=== PATIENT | female | born 1960 | race African-American/Black ===

== ENCOUNTER 2016-04-16 09:27 | Emergency (ER) | payer OTHER ==
[~2016-04-16] VITALS: Ht 157.5 cm; Wt 73.9 kg
[~2016-04-16 09:27] MED LIST: AFRIN NASAL SPR15 ML NAS; AUGMENTIN 875 M1 TAB PO; BLM PO; FLEXERIL 5MG TAB5 MG PO; FLONASE ALLERG9.9 ML INH; IBUPROFEN800 MG PO; MEDROL DOSEPAK1 PAC PO; MOBIC15 MG PO; NASONEX0.05 MG/Ac NAS; OXYCODONE5 M1 PO; PREDNISONE50 MG PO; PROPRANOLOL HCL60 MG; TRAMADOL50 MG PO; VICODIN5-300 PO; XANAX0.5 MG PO; ZITHROMAX Z-PA250 M1 PO; ZOMIG5 M1 NAS
[2016-04-16 09:30] VITALS: BP 120/89
--- NOTE | 2016-04-16 09:38 | ED EYE COMPLAINT ---
History of Present Illness General Chief Complaint: General Adult Stated Complaint: PT STATES"IM GETTING FLOATERS" Source: patient, old records Exam Limitations: no limitations Vital Signs & Intake/Output Vital Signs & Intake/Output Vital Signs Date Time Temp Pulse Resp B/P Pulse O2 O2 Flow FiO2 Ox Delivery Rate 04/16 0930 96.1 78 16 120/89 100 Room Air Allergies Coded Allergies: oxycodone (ITCHING 11/28/15) Uncoded Allergies: NARCOTICS (Intermediate, ITCHING 01/11/15) Reconcile Medications Fluticasone Propionate (Flonase Allergy Relief) 50 MCG/ACTUATION SPRAY.SUSP 2 PUFF INH D ALLERGIES Ibuprofen 800 MG TAB 1 TAB PO TID PRN PAIN Triage Note: 55 Y/O FEMALE STATES "I AM DEHYDRATED". STATES SHE GETS "FLOATERS" IN HER EYES WHEN THIS HAPPENS AND CURRENTLY FEELS "DRY ALL OVER". STATES SHE IS NOT GOOD ABOUT DRINKING WATER. DENIES N/V/D. Triage Nurses Notes Reviewed? yes Onset: Gradual Duration: week(s):, gone now, intermittent Timing: recent history Injury Environment: home Severity: mild Severity Numbers: 3 No Modifying Factors: none Left Eye Associated Symptoms: "dry" Right Eye Associated Symptoms: "dry" HPI: 55-year-old female presents to the emergency room complaining of intermittent bilateral visual "floaters" that she has had for the past several weeks and has had chronically in the past. She states that she's been seen by an eye doctor and was told that her symptoms were because she was "dehydrated" she denies any floaters at this time there is no visual loss she denies any other vision symptoms or eye pain however she states her eyes feel "dry" she denies recent fever chills no recent trauma no swelling or rashes to her face no chest pain no shortness of breath nausea vomiting or diarrhea (KIMMY RING,IKER) Past History Travel History Traveled to [place] past 21 day No Medical History Any Pertinent Medical History? 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 No (IKER SAXENA) Review of Systems Review of Systems Constitutional: Reports: see HPI. All Other Systems: Reviewed and Negative Comments Review of systems: See HPI, All other systems negative. Constitutional, no chills no fever, no malaise HEENT: no sore throat no congestion Cardiovascular: No chest pain , no palpitation Skin, no rashes, no change in skin Respiratory: No dyspnea no cough no sputum GI: No nausea no vomiting, no diarrhea, no bloating/constipation : No dysuria No hematuria, Muscle skeletal: No joint pain, no back pain, no neck pain, Neurologic: No numbness no headache Psych: No stress Heme/endocrine: No bruising no bleeding Immunology: No lymphadenopathy (IKER SAXENA) Physical Exam General Appearance: well developed/nourished, alert, awake, comfortable General Inspection: normal inspection Eyelid: normal inspection Conjunctiva/Sclera: normal inspection Cornea: normal inspection EOM: intact Pupil: normal accommodation, normal pupil, PERRL General Inspection: normal inspection Eyelid: normal inspection Conjunctiva/Sclera: normal inspection Cornea: normal inspection EOM: intact Pupil: normal accommodation, normal pupil, PERRL Physical Exam Comments: Well-developed well-nourished patient in no apparent distress. Head/Face: Atraumatic, no maxillary/frontal sinus tenderness, no facial swelling Eyes: PERRL, EOMI, no conjunctival injection. No nystagmus Ear:External auditory canal and Tympanic membranes clear, no erythema, no FB. Nose: atraumatic.Normal inspection: No bleeding, no septal hematoma Throat: Moist mucous membranes.Pharynx normal. No pharyngeal erythema/exudate seen. No stridor/drooling or assymetry. No swelling or edema. Neck: Supple, no lymphadenopathy, FROM Back: FROM, Nontender Cardiovascular: Regular rate and rhythms no murmurs rubs or gallops, Respiratory: Chest nontender.There were no bony deformities, no asymmetry. No respiratory distress. Patient speaking in full complete sentences. Breath sounds clear to auscultation bilaterally: NO W/R/R Extremities: full range of motion Neuro: Alert and oriented x3 Skin: Warm & dry;No appreciable rash on exposed skin Psych: Mood affect normal, normal memory normal judgment. (IKER SAXENA) Progress Differential Diagnosis: corneal abrasion, conjunctivitis, detached retina, glaucoma, retinal art./v. occlusion, electrolyte abnormality, sjogrens syndrome Plan of Care: Orders Procedure Date/time Status CBC WITHOUT DIFFERENTIAL 04/16 942 Complete BASIC METABOLIC PANEL 04/16 942 Complete Laboratory Tests 04/16/16 0948: Anion Gap 14, Estimated GFR > 60, BUN/Creatinine Ratio 30.0 H, Glucose 104 H, Calcium 9.1, CBC w Diff NO MAN DIFF REQ, RBC 4.16 L, MCV 82.3, MCH 27.7, RDW 12.7, MPV 8.4, Gran % 35.4 L, Lymphocytes % 52.5 H, Monocytes % 7.0, Eosinophils % 2.6, Basophils % 2.5 H, Absolute Granulocytes 0.7 L, Absolute Lymphocytes 1.0 L, Absolute Monocytes 0.1 L, Absolute Eosinophils 0, Absolute Basophils 0, PUBS MCHC 33.7 Labs ordered patient denies any symptoms including floaters at this time patient has been seen numerous times in the past stating that IV fluids resolve her episodes of these symptoms On repeat evaluation patient again denies any symptoms no visual symptoms. She feels well, discussed the need for close follow-up with ophthalmology information was provided advised return anytime sooner if any concerns she feels , plan cleared for discharge (IKER SAXENA) Departure Departure Time of Disposition: 1048 Disposition: HOME OR SELF CARE Condition: Stable Clinical Impression Primary Impression: Floaters in visual field Referrals: Martha WILD MD (PCP/Family) DIA PALACIOS MD Additional Instructions: Primary care physician as well as foundry tender Dr. PALACIOS. Return anytime sooner with any concerns Departure Forms: Customer Survey General Discharge Information (IKER SAXENA) PA/EMPLOYEE ADVISER Co-Sign Statement Statement: ED Attending supervision documentation- [] I saw and evaluated the patient. I have also reviewed all the pertinent lab results and diagnostic results. I agree with the findings and the plan of care as documented in the PA's/EMPLOYEE ADVISER's documentation. [X] I have reviewed the ED Record and agree with the PA's/EMPLOYEE ADVISER's documentation. [] Additions or exceptions (if any) to the PAs/EMPLOYEE ADVISER's note and plan are summarized below: [] (COREY HEATON DO)
[2016-04-16 09:55] LABS: ABSOLUTE BASOPHIL COUNT 0 /CUMM (0.0-0.2); ABSOLUTE EOSINOPHIL COUNT 0 /CUMM (0.0-0.7); ABSOLUTE GRANULOCYTE CT 0.7 /CUMM (1.4-6.5); ABSOLUTE MONOCYTE COUNT 0.1 /CUMM (0.10-0.60); BASOPHIL % 2.5 % (0.0-2.0); EOSINOPHIL % 2.6 % (0-5); HEMATOCRIT 34.3 % (37-47); MEAN CORPUSCULAR HGB 27.7 PG (27.0-31.0); MEAN CORPUSCULAR HGB CONC 33.7 G/DL (33.0-37.0); MEAN CORPUSCULAR VOLUME 82.3 FL (81.0-99.0); MEAN PLATELET VOLUME 8.4 FL (7.4-10.4); PLATELET COUNT 212 /CUMM (130-400); RBC DISTRIBUTION WIDTH 12.7 % (11.5-14.5); RED BLOOD CELL CT 4.16 /CUMM (4.20-5.40); WHITE BLOOD CELL COUNT 1.9 /CUMM (4.8-10.8)
[2016-04-16 09:56] LABS: GRANULOCYTE % 35.4 % (42.2-75.2)
== END 2016-04-16 10:51 ==
LOC: ERH 09:27
PROVIDERS: Physician Assistant Medical
DX: H43.393 Other vitreous opacities, bilateral (principal)
CPT/HCPCS: 96360

== ENCOUNTER 2016-07-25 22:37 | Emergency (ER) | payer OTHER ==
[~2016-07-25] VITALS: Ht 157.5 cm; Wt 73.9 kg
[2016-07-25 22:39] VITALS: BP 111/77
--- NOTE | 2016-07-26 00:07 | ED INFLUENZA/URI COMPLAINT ---
History of Present Illness General Chief Complaint: Upper Respiratory Sx/Fever Stated Complaint: SINUS CONGESTION, EARS BLOCKED Source: patient Exam Limitations: no limitations Vital Signs & Intake/Output Vital Signs & Intake/Output Vital Signs Date Time Temp Pulse Resp B/P Pulse O2 O2 Flow FiO2 Ox Delivery Rate 07/259 97.8 74 18 111/77 98 Room Air ED Intake and Output 07/26 0000 07/25 1200 Intake Total Output Total Balance Patient 163 lb Weight Allergies Coded Allergies: oxycodone (ITCHING 11/28/15) Uncoded Allergies: NARCOTICS (Intermediate, ITCHING 01/11/15) Reconcile Medications Methylprednisolone. (Medrol) 4 MG TAB.DS.PK 1 DP PO AD uri 6 on day 1 then reduce by one tablet daily until gone Triage Note: PT TO TRIAGE WITH C/O ITCHY/DRY EYES, CONGESTION, EARS BLOCKED x5DAYS. HX OF SEASONAL ALLERGY. PT HAS BEEN TAKING BENADRYL AND CLARITIN WITH NO RELIEF. VSS, PT AFEBRILE. Triage Nurses Notes Reviewed? yes Onset: Abrupt Duration: day(s):, constant, changing over time Timing: recent history Severity: moderate, severe No Modifying Factors: none HPI: 55-year-old female comes into the emergency room for further evaluation of sinus congestion with her ears feeling like there is a lot of pressure in them bilaterally. Denies any fever. Denies any vomiting. Denies any sore throat. History of previous sinus issues. Nothing seems to make the symptoms better or worse. Denies any other associated symptoms. (SRUTHI GLOVER) Past History Travel History Traveled to [place] past 21 day No Medical History Any Pertinent Medical History? 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 No (SRUTHI GLOVER) Review of Systems Review of Systems Constitutional: Reports: see HPI. EENTM: Reports: see HPI. Respiratory: Reports: see HPI. Cardiovascular: Reports: no symptoms. GI: Reports: no symptoms. Genitourinary: Reports: no symptoms. Musculoskeletal: Reports: no symptoms. Skin: Reports: no symptoms. Neurological/Psychological: Reports: no symptoms. Hematologic/Endocrine: Reports: no symptoms. Immunologic/Allergic: Reports: no symptoms. All Other Systems: Reviewed and Negative (SRUTHI GLOVER) Physical Exam Physical Exam General Appearance: well developed/nourished, no apparent distress, alert Head: atraumatic, normal appearance Eyes: Bilateral: normal appearance. Ears, Nose, Throat: normal ENT inspection, moist mucous membrane, cerumen impaction Neck: normal inspection, full range of motion Respiratory: normal breath sounds, no respiratory distress Cardiovascular: regular rate/rhythm Gastrointestinal: soft Back: normal inspection Extremities: normal inspection, normal range of motion, no edema Neurologic/Psych: awake, alert, oriented x 3, normal gait, normal mood/affect Skin: intact, normal color Core Measures Severe Sepsis Present: No Septic Shock Present: No (SRUTHI GLOVER) Progress Differential Diagnosis: influenza, meningitis, neutropenia, otitis, pneumonia, pharyngitis, sinusitis Plan of Care: 07/26/2016 12:24:26 AM Patient clinically looks well. In no apparent distress. Nontoxic-appearing. Left ear was irrigated due to cerumen impaction. Small amount of wax removed but patient still has calcified wax. Patient was instructed to use dubrex drops [id number]. 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 Take Medrol Dosepak as prescribed. Follow-up with your primary care doctor. Return if any concerns worsening symptoms. Please go over all results of today's visit with your primary care doctor. Contact your primary care doctor to let them know you were here in the emergency room. There may be nonspecific findings which may not be related to your visit today here in the emergency room but may require further evaluation and chronic monitoring by your primary care doctor. If you had a laceration today the chance of foreign body always remains. You should follow-up with your primary care doctor for recheck in 3-5 days for a wound check. If you had an x-ray done there is a chance that a fracture could have been missed on initial read and you should follow-up with your primary care doctor for repeat x-rays if symptoms persist. If your blood pressure was elevated here in the emergency room please have rechecked by her primary care doctor within the next 48 hours by your primary care doctor. If you were prescribed a narcotic here in the emergency room or any type of controlled substances you're not allowed to drive while taking this medication or operate any type of heavy machinery. Narcotics can make you feel lightheaded dizziness nausea and can cause constipation. You may need to picker operator a stool softener. Thank you for choosing [facility] emergency room. Please return to the emergency room immediately if you have any other concerns worsening of symptoms. Departure Forms: Customer Survey General Discharge Information Prescriptions: Current Visit Scripts Methylprednisolone. (Medrol) 1 DP PO AD #1 DP 6 on day 1 then reduce by one tablet daily until gone (SRUTHI GLOVER) PA/LAUNDRY TECH Co-Sign Statement Statement: ED Attending supervision documentation- [] I saw and evaluated the patient. I have also reviewed all the pertinent lab results and diagnostic results. I agree with the findings and the plan of care as documented in the PA's/LAUNDRY TECH's documentation. [x] I have reviewed the ED Record and agree with the PA's/LAUNDRY TECH's documentation. [] Additions or exceptions (if any) to the PAs/LAUNDRY TECH's note and plan are summarized below: [] (ANA ROSA PATTERSON,KULWINDER Mcintyre)
[2016-07-26] MEDS ORDERED: MEDROL4 M2 PO (00:08)
[2016-07-26] MEDS ORDERED: MELOXICAM7.5 M1 PO (00:09)
== END 2016-07-26 00:15 ==
LOC: ERH 22:37
DX: J06.9 Acute upper respiratory infection, unspecified (principal)

== ENCOUNTER 2016-09-14 10:35 | Emergency (ER) | payer OTHER ==
[~2016-09-14] VITALS: Ht 157.5 cm; Wt 77.1 kg
[~2016-09-14 10:35] MED LIST changes: +MEDROL4 M2 PO; +MELOXICAM7.5 M1 PO
--- NOTE | 2016-09-14 11:19 | ED INFLUENZA/URI COMPLAINT ---
History of Present Illness General Chief Complaint: General Adult Stated Complaint: SEASONAL ALLERGIES,"EYE FLOATERS", "?DEHYDRATION" Source: patient Exam Limitations: no limitations Vital Signs & Intake/Output Vital Signs & Intake/Output Vital Signs Date Time Temp Pulse Resp B/P B/P Pulse O2 O2 Flow FiO2 Mean Ox Delivery Rate 09/14 1044 97.4 80 18 120/81 99 Room Air Allergies Coded Allergies: oxycodone (ITCHING 11/28/15) Uncoded Allergies: NARCOTICS (Intermediate, ITCHING 01/11/15) Reconcile Medications Methylprednisolone. (Medrol) 4 MG TAB.DS.PK 1 DP PO AD uri 6 on day 1 then reduce by one tablet daily until gone Methylprednisolone. (Medrol) 4 MG TAB.DS.PK 1 DP PO AD ALLERGIC SINUSITIS 6 on day 1 then reduce by one tablet daily until gone Mometasone Furoate (Nasonex) 50 MCG SPRAY.PUMP 2 SPRAY NASB DAILY ALLERGIC SINUSITIS Triage Note: C/O NASAL PAIN AND CONGESTION X 3 DAYS. PAIN RADIATES TO BOTH EARS AND JAW. TAKING ZYRTEC, BUT NOT HELPING. Triage Nurses Notes Reviewed? yes Onset: Abrupt Duration: day(s):, constant, continues in ED Timing: recent history Severity: moderate, severe No Modifying Factors: none HPI: 56-year-old female comes into emergency room with complaints of sinus congestion and pressure. Patient has had a history of this intermittently for many years. She reports pain underneath her eyes bilaterally that radiates into her ears. Runny nose. Patient reports that she gets steroid packs in the past when they get this bad which helped. [id number] allergy medication not helping. Patient has chronic intermittent floaters in her eyes which she has been evaluated for by her project management manager. She reports that sometimes this happens when she gets dehydrated. Denies any current floaters. Denies any eye pain. Denies any associated cough. No sore throat. Denies any ear pain. Patient reports that she used to see an ear nose and throat doctor but currently has not seem him in quite some time. Looking to find a new one. Past History Travel History Traveled to [place] past 21 day No Medical History Any Pertinent Medical History? 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 No Review of Systems Review of Systems Constitutional: Reports: see HPI. EENTM: Reports: see HPI. Respiratory: Reports: see HPI. Cardiovascular: Reports: no symptoms. GI: Reports: no symptoms. Genitourinary: Reports: no symptoms. Musculoskeletal: Reports: no symptoms. Skin: Reports: no symptoms. Neurological/Psychological: Reports: no symptoms. Hematologic/Endocrine: Reports: no symptoms. Immunologic/Allergic: Reports: no symptoms. All Other Systems: Reviewed and Negative Physical Exam Physical Exam General Appearance: well developed/nourished, no apparent distress, alert Head: atraumatic, normal appearance Eyes: Bilateral: normal appearance, EOMI. Ears, Nose, Throat: normal ENT inspection, moist mucous membrane Neck: normal inspection Respiratory: normal breath sounds, no respiratory distress Cardiovascular: regular rate/rhythm Back: normal inspection Extremities: normal inspection, normal range of motion, no edema Neurologic/Psych: awake, alert, oriented x 3 Skin: intact, normal color Core Measures Severe Sepsis Present: No Septic Shock Present: No Progress Differential Diagnosis: influenza, meningitis, neutropenia, otitis, pneumonia, pharyngitis, sinusitis, otitis media, Plan of Care: see above Initial ED EKG: none Comments: 09/14/2016 12:12:56 PM Patient clinically looks well. Patient is nontoxic-appearing. Patient is in no apparent distress. Her floaters are chronic and she currently is asymptomatic. Symptoms are very consistent with allergic sinusitis. Patient treated with Medrol Dosepak and told to follow-up with ear nose and throat doctor. Patient can follow-up with her primary care doctor in meantime while she is waiting on appointment. She is in no apparent distress upon discharge. Departure Departure Disposition: HOME OR SELF CARE Condition: Stable Clinical Impression Primary Impression: Allergic sinusitis Referrals: RANI PATTERSON,KELLI WLID MD,Martha LO (PCP/Family) Additional Instructions: Take medications as prescribed. Follow up with ENT DR PROVIDED. Return if any concerns/worsening of symptoms. Please follow up with your primary care dr as well for further evaluation and eye dr as needed. Departure Forms: Customer Survey General Discharge Information Prescriptions: Current Visit Scripts Methylprednisolone. (Medrol) 1 DP PO AD #1 DP 6 on day 1 then reduce by one tablet daily until gone Mometasone Furoate (Nasonex) 2 SPRAY NASB DAILY #1 INHAL
[2016-09-14] MEDS ORDERED: MEDROL4 M2 PO (11:20)
[2016-09-14] MEDS ORDERED: NASONEX17 GM NASB (11:20)
[2016-09-14 12:15] VITALS: BP 141/67
== END 2016-09-14 12:15 ==
LOC: ERH 10:35
DX: J30.9 Allergic rhinitis, unspecified (principal)

== ENCOUNTER 2017-04-17 15:06 | Emergency (ER) | payer OTHER ==
[~2017-04-17] VITALS: Ht 157.5 cm; Wt 74.8 kg
[~2017-04-17 15:06] MED LIST changes: +CLARINEX5 M1 PO; +FLONASE ALLERG9.9 ML NAS; +MOBIC15 M1 PO; +NASONEX17 GM NASB; +PANTOPRAZOLE SO40 M1 PO; +PERCOCET 5-3251 EACH PO; +TRAMADOL HCL50 M1 PO
[2017-04-17 15:17] VITALS: BP 123/88
--- NOTE | 2017-04-17 15:36 | ED GENERAL ADULT ---
History of Present Illness General Chief Complaint: General Adult Stated Complaint: "IM HAVIGN FACIAL PAIN" Source: patient Exam Limitations: no limitations Vital Signs & Intake/Output Vital Signs & Intake/Output Vital Signs Date Time Temp Pulse Resp B/P B/P Pulse O2 O2 Flow FiO2 Mean Ox Delivery Rate 04/17 1517 97.6 74 18 123/88 98 Room Air Allergies Coded Allergies: meperidine (From DEMEROL) (ITCHING 04/17/17) morphine (ITCHING 04/17/17) oxycodone (ITCHING 11/28/15) Reconcile Medications Clorazepate Dipotassium 7.5 MG TABLET 1 TAB PO QHS PRN MENTAL HEALTH ( Reported) Ibuprofen 200 MG CAPSULE 3-4 CAP PO AD PRN PAIN/INFLAMMATION (Reported) Lisinopril 10 MG TABLET 1 TAB PO DAILY BP (Reported) Methylprednisolone. (Medrol) 4 MG TAB.DS.PK 1 DP PO AD jaw pain 6 on day 1 then reduce by one tablet daily until gone Pantoprazole Sodium 40 MG TABLET.DR 1 TAB PO DAILY REFLUX (Reported) Triage Note: PT STATES THAT SHE HAS CHRONIC JAW FACIAL PAIN RECENTLY DIAGNOSED WITH TMJ, STATES THAT HER MEDS ARE NOT WORKING, COMPLAINS OF JAW/FACIAL AND SINUS PAIN. Triage Nurses Notes Reviewed? yes Onset: Gradual Duration: week(s): (3 years intermittently ), continues in ED, intermittent Timing: recent history Injury Environment: home Severity: moderate, severe Severity Numbers: 7 No Modifying Factors: none LMP (ages 10-50): post menopausal : No Patient currently breastfeeds: No HPI: 56-year-old female past medical history of hypertension and chronic jaw pain presents for evaluation of pain in her jaw. Patient states she has been dealing with pain in her jaw and face over the past 3 years. She's been worked up extensively for this including CT scans and x-rays. She's been seen by ear nose and throat. She's been treated with antibiotics and surgical procedures on her sinuses. She recently was diagnosed with TMJ as a potential cause. She was placed on muscle relaxers but this has not been helping. She states that her pain has been intermittent for the past 3 years but this past episode started about 3 weeks ago. The pain is located on both sides of her jaw TMJ and maxillary sinuses. This is the same to the pain she's been dealing with for many years. No chest pain or shortness of breath. No history of coronary artery disease or diabetes. She states that in the past Medrol Dosepak to been the only thing that has helped her. She's been using muscle relaxers ibuprofen and tramadol without significant improvement. Pain is worse with movement of the jaw and touching the areas. She currently rates the pain as a 7 out of 10. Past History Travel History Traveled to [place] past 21 day No Medical History Any Pertinent Medical History? 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 No Review of Systems Review of Systems Constitutional: Reports: no symptoms. EENTM: Reports: no symptoms. Respiratory: Reports: no symptoms. Cardiovascular: Reports: no symptoms. GI: Reports: no symptoms. Genitourinary: Reports: no symptoms. Musculoskeletal: Reports: joint pain, muscle pain, muscle stiffness. Skin: Reports: no symptoms. Neurological/Psychological: Reports: no symptoms. Hematologic/Endocrine: Reports: no symptoms. Immunologic/Allergic: Reports: no symptoms. All Other Systems: Reviewed and Negative Physical Exam Physical Exam General Appearance: well developed/nourished, no apparent distress, alert, awake Head: atraumatic, normal appearance Eyes: Bilateral: normal appearance, PERRL, EOMI. Ears, Nose, Throat: normal pharynx, normal ENT inspection, hearing grossly normal, there is pain with palpation of the bilateral mandible and TMJ. No swelling or erythema in this area. Full range of motion of the mandible is intact with pain. The maxillary sinuses are tender to palpation bilaterally. No purulent congestion or rhinorrhea noted. No mastoid tenderness. No lymphadenopathy Neck: normal inspection, supple, full range of motion, no midline tenderness Respiratory: normal breath sounds, chest non-tender, no respiratory distress, lungs clear Cardiovascular: regular rate/rhythm Gastrointestinal: soft, non-tender Back: normal inspection, normal range of motion Extremities: normal inspection, normal range of motion, no edema Neurologic/Psych: no motor/sensory deficits, awake, alert, oriented x 3, normal gait, normal mood/affect, normal finger to nose Skin: intact, normal color, warm/dry Lymphatic: no anterior cervical vani Core Measures ACS in differential dx? No CVA/TIA Diagnosis: No Sepsis Present: No Sepsis Focused Exam Completed? No Progress Differential Diagnoses I considered the following diagnoses in my evaluation of the patient: [TMJ, sinusitis, chronic jaw pain, tension headache, migraine headache, acute coronary syndrome] Plan of Care: Patient seen and evaluated. She'll chronic jaw and facial pain. This is been worked up extensively. It been going on for 3 years intermittently. The current episode started 3 weeks ago. This is the same type of pain she's had in the past. She says the only thing that works as a Medrol Dosepak. The exam is unremarkable other than sinus tenderness and mandibular tenderness to palpation and range of motion. Considered atypical presentation of acute coronary syndrome however patient has minimal risk factors. Symptoms are reproducible with range of motion and palpation. There is no evidence of acute infection. Patient is nontoxic-appearing vital signs are stable. Patient was given a prescription for Medrol Dosepak and instructed to follow up with her primary care doctor. Initial ED EKG: none Departure Departure Disposition: HOME OR SELF CARE Condition: Stable Clinical Impression Primary Impression: Chronic jaw pain Referrals: Martha Guerra MD (PCP/Family) Additional Instructions: Rest, avoid chewy foods and gum chewing. Apply warm compresses to the jaw. Take Medrol Dosepak as directed for the full course. Tylenol ibuprofen for pain. Tramadol for severe pain only. Make a follow-up with your specialist as soon as possible. Monitor your symptoms return with any concerns. Departure Forms: Customer Survey General Discharge Information Prescriptions: Current Visit Scripts Methylprednisolone. (Medrol) 1 DP PO AD #1 DP 6 on day 1 then reduce by one tablet daily until gone Critical Care Note Critical Care Note Critical Care Time: non-applicable
[2017-04-17] MEDS ORDERED: CLORAZEPATE DI7.5 M1 PO (15:41)
[2017-04-17] MEDS ORDERED: LISINOPRIL10 M1 PO (15:42)
[2017-04-17] MEDS ORDERED: IBUPROFEN200 M3 PO (15:43)
[2017-04-17] MEDS ORDERED: MEDROL4 M2 PO (15:52)
== END 2017-04-17 16:09 ==
LOC: ERH 15:06
DX: R68.84 Jaw pain (principal)

== ENCOUNTER 2017-08-09 09:00 | Emergency (ER) | payer OTHER ==
[~2017-08-09] VITALS: Ht 157.5 cm; Wt 73.9 kg
[~2017-08-09 09:00] MED LIST changes: +CLORAZEPATE DI7.5 M1 PO; +IBUPROFEN200 M3 PO; +LISINOPRIL10 M1 PO
--- NOTE | 2017-08-09 09:07 | ED UPPER/LOWER EXTREMITY COMPL ---
History of Present Illness General Chief Complaint: Lower Extremity Problems Stated Complaint: RT KNEE PAIN Source: patient, old records Exam Limitations: no limitations Vital Signs & Intake/Output Vital Signs & Intake/Output Vital Signs Date Time Temp Pulse Resp B/P B/P Pulse O2 O2 Flow FiO2 Mean Ox Delivery Rate 08/09 1049 98.2 69 20 152/76 99 Room Air 08/09 0905 97.4 86 18 133/86 99 Room Air Allergies Coded Allergies: meperidine (From DEMEROL) (ITCHING 04/17/17) morphine (ITCHING 04/17/17) oxycodone (ITCHING 11/28/15) Reconcile Medications Lisinopril 10 MG TABLET 1 TAB PO DAILY BP (Reported) Nortriptyline HCl 10 MG CAPSULE 3 CAP PO QPM SLEEP (Reported) Pantoprazole Sodium 40 MG TABLET.DR 1 TAB PO DAILY REFLUX (Reported) Tylenol With Codeine (Tylenol With Codeine #3 Tablet) 300 MG-30 MG TABLET 1 TAB PO BIDP PRN pain Triage Note: PT STATES SHE HAD HER RIGHT KNEE REPLACED 6 YEARS AGO AND IT HAS BEEN BOTHERING HER. PT STATES SHE ALSO NEEDS TO HAVE HER HEART CHECKED OUT BECAUSE IT FEELS LIKE IT IS BEATING FAST ON AND OFF. PT DENIES CHEST PAIN AT THIS TIME STATES WHEN HER HEART BEATS FAST SHE LOOSES HER BREATH. PT STATES SHE NOTICED THAT SHE GETS THIS DAILY AND IT SEEMS TO BE LASTING LONGER NOW. Triage Nurses Notes Reviewed? yes Onset: Abrupt Duration: day(s): (2), constant Timing: recent history Severity: moderate Severity Numbers: 7 Pain/Injury Location: Right: Knee. Method of Injury: unknown No Modifying Factors: none Associated Symptoms: PALPITATIONS HPI: 56-year-old female presents the ER for evaluation complaining of right lateral knee pain for the past 2 days. She is status post knee replacement [address] fields. She states she denies any known injury or trauma however the lateral aspect of her knee has been bothering her she denies any redness warmth or swelling no fever no chills. Pain is 7 out of 10 constant. No foot ankle or hip pain no numbness or tingling Patient states she's been under increased stress at home she states over the past 2 weeks she has had intermittent daily episodes of palpitations lasting for up to 10 minutes. She reports she had a history of similar episodes a year ago that went away on their own she never sought care. She's never seen a bone crusher before no recent travel or immobility no shortness of breath calf pain nausea vomiting dizziness lightheadedness shortness of breath or chest pain Past History Travel History Traveled to [place] past 21 day No Medical History Any Pertinent Medical History? 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 No Review of Systems Review of Systems Constitutional: Reports: see HPI. Comments Review of systems: See HPI, All other systems negative. Constitutional, no chills no fever, HEENT: no sore throat no congestion Cardiovascular: No chest pain , (+) palpitation Skin: no rashes, no change in skin Respiratory: No dyspnea no cough GI: No nausea no vomiting, no diarrhea : No dysuria No hematuria, no frequency Muscle skeletal: joint pain, no back pain, no neck pain, Neurologic: , no headache Psych: stress Heme/endocrine: No bruising n Immunology: No lymphadenopathy Physical Exam Physical Exam General Appearance: well developed/nourished, no apparent distress, alert, awake Comments: Well-developed well-nourished patient in no apparent distress. HEENT: Atraumatic, extraocular motion intact Neck: Supple, FROM Back: FROM Cardiovascular: Regular rate and rhythms no murmurs rubs or gallops, Respiratory: Chest nontender.There were no bony deformities, no asymmetry. No respiratory distress. Patient speaking in full complete sentences. Breath sounds clear to auscultation bilaterally: NO W/R/R UPPER Extremities: full range of motion Hip/Pelvis: Atraumatic/Stable. FROM Knee: Atraumatic/stable. Tender to palpation over the lateral aspect of the knee there is no surrounding erythema and warmth FROM. No joint swelling, no effusion. No laxity. Negative cristal/anterior drawer test. No pain with ROM Leg: Atraumatic. Nontender. No edema, 5 out of 5 strength in the lower extremity, normal dorsiflexion of great toe bilaterally, gross sensation is intact, Ankle/Foot: Atraumatic/stable. Skin intact. FROM. No swelling, no effusion. No laxity on exam Pulses: Normal/equal DP/PT pulses bilaterally. Brisk cap refill Neuro: awake, alert, and oriented to person, place and time. There were no obvious focal neurologic abnormalities. Skin: Warm & dry;No appreciable rash on exposed skin Psych: Mood affect normal, normal memory normal judgment. Progress Differential Diagnosis: cellulitis, contusion, dislocation, fracture, gout, septic arthritis, sprain, tendon injury, electrolyte abnormality dehydration arrhythmia, angina, ami Plan of Care: Orders Procedure Date/time Status Durable Medical Equipment 08/09 1033 Active Telemetry/Flat Sheet Maker 08/09 09 Active THYROID STIMULATING HORMONE 08/09 0932 Complete TROPONIN LEVEL 08/09 0932 Complete MAGNESIUM 08/09 0932 Complete COMPREHENSIVE METABOLIC PANEL 08/09 0932 Complete CBC WITHOUT DIFFERENTIAL 08/09 0832 Complete EKG 08/09 0932 Active Laboratory Tests 08/09/17 0937: Anion Gap 13, Estimated GFR > 60, BUN/Creatinine Ratio 25.0, Glucose 94, Calcium 9.2, Magnesium 2.0, Total Bilirubin 0.4, AST 28, ALT 26, Alkaline Phosphatase 73 , Troponin I < 0.01, Total Protein 7.5, Albumin 3.9, Globulin 3.6, Albumin/ Globulin Ratio 1.1, TSH 1.280, CBC w Diff NO MAN DIFF REQ, RBC 4.19 L, MCV 82.3 , MCH 27.6, MCHC 33.5, RDW 14.2, MPV 8.3, Gran % 48.3, Lymphocytes % 42.7, Monocytes % 7.1, Eosinophils % 1.1, Basophils % 0.8, Absolute Granulocytes 0.9 L, Absolute Lymphocytes 0.8 L, Absolute Monocytes 0.1, Absolute Eosinophils 0, Absolute Basophils 0 Patient resting in no acute distress at this time denies any complaints of palpitations discussed with Dr. Guerrier agrees with plan Patient's white blood cell count dating back to 2009 has been low ranging anywhere from 2-1-3,000 I discussed with the patient at length all of their results and labs. . I had an extensive conversation regarding need for close follow up with their primary care physician/ortho and cardiology this week as well as return precautions. I answered all of their questions, they feel comfortable with the plan and follow- up care. leg immobilizer applied I discussed with the patient the medications that they will receive. I gave them signs and symptoms that could indicate an adverse reaction. I have advised them to limit their activities until they can see how they respond to the medication. Diagnostic Imaging: Viewed by Me: Radiology Read. Discussed w/RAD: Radiology Read. Radiology Impression: PATIENT: ZEESHAN MASTERS PRESENT AGE: 56 PATIENT ACCOUNT NO: [id number] : 62 LOCATION: [facility] ORDERING PHYSICIAN: Mahamed RING SERVICE DATE: 08/09/17 EXAM TYPE: RAD - XRY- CHEST XRAY, TWO VIEWS EXAMINATION: XR CHEST CLINICAL INFORMATION: Palpitations. COMPARISON: 06/05/2015. TECHNIQUE: 2 views of the chest were obtained. FINDINGS: The cardiomediastinal silhouette is normal. The lungs are clear. No consolidation, pulmonary edema, pleural effusion, pneumothorax. No acute osseous abnormalities. IMPRESSION: No acute abnormality. DICTATED BY: Lai Cabral MD DATE/TIME DICTATED:08/09/171045 POWDER BLENDER:HANNY DATE/TIME TRANSCRIBED:08/09/171045 CONFIDENTIAL, DO NOT COPY WITHOUT APPROPRIATE AUTHORIZATION. <Electronically signed in Other Vendor System> SIGNED BY: Lai Cabral MD 08/09/17 1052, PATIENT: ZEESHAN MASTERS PRESENT AGE: 56 PATIENT ACCOUNT NO: [id number] : 62 LOCATION: [facility] ORDERING PHYSICIAN: Mahamed RING SERVICE DATE: 08/09/17 EXAM TYPE: RAD - XRY-KNEE COMPLETE RIGHT EXAMINATION: XR KNEE, RIGHT CLINICAL INFORMATION: Knee pain after knee replacement. COMPARISON: 12/23/2015. TECHNIQUE: Four views of the right knee. FINDINGS: A total knee replacement is stable in appearance without evidence of hardware complication. No periprosthetic fracture. No dislocation. No suprapatellar knee joint effusion. Well-corticated small ossific densities are visualized along the distal quadriceps tendon, unchanged. IMPRESSION: Stable appearance of the right knee relative to 12/23/2015. No acute abnormality is radiographically evident. DICTATED BY: Lai Cabral MD DATE/TIME DICTATED:08/09/171044 POWDER BLENDER:HANNY DATE/TIME TRANSCRIBED:1044 CONFIDENTIAL, DO NOT COPY WITHOUT APPROPRIATE AUTHORIZATION. < Electronically signed in Other Vendor System> SIGNED BY: Lai Cabral MD 08/09/17 1050 Initial ED EKG: normal intervals, normal p-waves, normal QRS complex, normal sinus rhythm Prior EKG: unchanged Rhythm Strip: normal sinus rhythm Departure Departure Time of Disposition: 1100 Disposition: HOME OR SELF CARE Condition: Stable Clinical Impression Primary Impression: Knee pain Secondary Impressions: Heart palpitations Referrals: Jonathan PATTERSON,Makc Guerra MD,Martha Lala (PCP/Family) Lorna PATTERSON,Tej Mays Additional Instructions: Follow up with your orthopedist this week as well as bone crusher Dr. Rothman. As discussed you may require a Holter monitor for further workup regarding your palpitations. Continue taking ibuprofen for your pain, tylenol with codeine for breakthrough pain. use caution as this may make you drowsy. no driving or drinking alcohol while taking. leg immobilizer as discussed return anytime sooner with any concerns. Departure Forms: Customer Survey General Discharge Information Prescriptions: Current Visit Scripts Tylenol With Codeine (Tylenol With Codeine #3 Tablet) 1 TAB PO BIDP PRN pain #8 TAB
[2017-08-09] MEDS ORDERED: NORTRIPTYLINE H10 M2 PO (09:25)
[2017-08-09 09:53] LABS: ABSOLUTE BASOPHIL COUNT 0 /CUMM (0.0-0.2); ABSOLUTE EOSINOPHIL COUNT 0 /CUMM (0.0-0.7); ABSOLUTE GRANULOCYTE CT 0.9 /CUMM (1.4-6.5); ABSOLUTE LYMPH COUNT 0.8 /CUMM (1.2-3.4); ABSOLUTE MONOCYTE COUNT 0.1 /CUMM (0.10-0.60); BASOPHIL % 0.8 % (0.0-2.0); EOSINOPHIL % 1.1 % (0-5); GRANULOCYTE % 48.3 % (42.2-75.2); HEMATOCRIT 34.5 % (37-47); MEAN CORPUSCULAR HGB 27.6 PG (27.0-31.0); MEAN CORPUSCULAR HGB CONC 33.5 G/DL (33.0-37.0); MEAN CORPUSCULAR VOLUME 82.3 FL (81.0-99.0); MEAN PLATELET VOLUME 8.3 FL (7.4-10.4); PLATELET COUNT 193 /CUMM (130-400); RBC DISTRIBUTION WIDTH 14.2 % (11.5-14.5); RED BLOOD CELL CT 4.19 /CUMM (4.20-5.40); WHITE BLOOD CELL COUNT 1.9 /CUMM (4.8-10.8)
[2017-08-09 10:49] VITALS: BP 152/76
--- NOTE | 2017-08-09 10:50 | RADIOLOGY REPORT ---
EXAMINATION: XR KNEE, RIGHT CLINICAL INFORMATION: Knee pain after knee replacement. COMPARISON: 12/23/2015. TECHNIQUE: Four views of the right knee. FINDINGS: A total knee replacement is stable in appearance without evidence of hardware complication. No periprosthetic fracture. No dislocation. No suprapatellar knee joint effusion. Well-corticated small ossific densities are visualized along the distal quadriceps tendon, unchanged. IMPRESSION: Stable appearance of the right knee relative to 12/23/2015. No acute abnormality is radiographically evident.
[2017-08-09] MEDS ORDERED: TYLENOL WITH C1 EACH PO (10:52)
--- NOTE | 2017-08-09 10:52 | RADIOLOGY REPORT ---
EXAMINATION: XR CHEST CLINICAL INFORMATION: Palpitations. COMPARISON: 06/05/2015. TECHNIQUE: 2 views of the chest were obtained. FINDINGS: The cardiomediastinal silhouette is normal. The lungs are clear. No consolidation, pulmonary edema, pleural effusion, pneumothorax. No acute osseous abnormalities. IMPRESSION: No acute abnormality.
== END 2017-08-09 11:07 ==
LOC: ERH 09:00
PROVIDERS: Physician Assistant Medical
DX: M25.561 Pain in right knee (principal); R00.2 Palpitations
CPT/HCPCS: 71046; 73562-RT; 93005; 93010